=== PATIENT | female | born 1985 | race Caucasian/White ===

== ENCOUNTER → 2017-06-16 | Outpatient (CLI) | payer OTHER ==
--- NOTE | 2017-06-16 15:43 | US ---
EXAMINATION TYPE: US OB anatomy transabd DATE OF EXAM: 06/16/2017 COMPARISON: NONE HISTORY: 31-year-old female Z34.80 Encounter for supervision of normal preg Anatomy scan TECHNIQUE: Transabdominal (TA) FINDINGS: EXAM MEASUREMENTS: GESTATIONAL AGE / DATING Physician Established: (24 weeks/2 days) EDC: 10/04/2017 Dates by LMP: Unknown Dates by First Scan: (24 weeks/2 days) EDC: 10/04/2017 Dates by Current Scan for: (23 weeks/4 days) EDC: 10/09/2017 (5 days more prominent than expected as compared to 04/12/2017). SURVEY IUP: Single PLACENTA: Posterior PREVIA: No previa LISSETT: 11.6 cm Normal CERVICAL LENGTH (transabdominal: norm > 3.0cm): 4.1 cm BIOMETRY PRESENTATION: Vertex BPD: 6.0 cm 24 weeks / 3 days HC: 22.4 cm 24 weeks / 3 days AC: 19.0 cm 23 weeks / 5 days FL: 4.1 cm 23 weeks / 2 days ESTIMATED WEIGHT IN GRAMS: 616.6 grams ESTIMATED WEIGHT IN LBS/OZ: 1 lbs. 6 oz. WEIGHT PERCENTAGE BASED ON ESTABLISHED DATE: 17 % (versus <3% on 04/12/2017) HC/AC: 1.18 Normal FL/AC: 22 Normal HEART RATE: 148 bpm RHYTHM: Normal ANATOMY SEEN (within normal limits): Lateral Vent (< 1 cm) 0.7 cm Cisterna Magna (< 1.1 cm) 0.5 cm Cerebellum (varies with age) 2.6 cm Choroid Plexus (bilateral) Midline Falx Cavus Septi Pellucidi Outflow tracts: LVOT/RVOT Stomach Situs Nose / Lips Diaphragm Kidneys (bilateral) Bladder Three Vessel Cord Arms (bilateral) Legs (bilateral) ANATOMY SUBOPTIMALLY VISUALIZED OR SHOULD BE REASSESSED: Longitudinal Spine (craniocervical junction) - skin line not delineated. Heterogeneous appearance at the craniocervical junction. Transverse Spine Four Chamber Heart- but there is normal except for one image that shows echogenic focus at the tip of the left ventricle. Recommend rescan of this area to exclude an echogenic intracardiac focus. An adj acent rib is suspected. Cord Insert - bulbous appearance to the cord prior to its insertion probably due to the angle during scanning. BATCHMAKER NOTES: Single, viable IUP/ Anatomy appeared wnl IMPRESSION: 1. Single live intrauterine with established gestational age of 24 weeks 2 days by prior da ting scan. Current ultrasound biometry is larger and remains concordant (23 weeks 4 days) which trans lates to 5 days more growth than expected from 04/12/2017. 2. EFW has increased from <3% now to the 17 percentile. 3. Recommend rescan of a few structures including spine (at the craniocervical junction), 4 jesse mber heart to exclude an echogenic intracardiac focus, and the umbilical cord prior to the insertion as above. 4. Otherwise, the remaining anatomy appears normal.
== END | disposition home or self-care (01) ==
LOC: RADUSWWP 13:16
PROVIDERS: ATTEND Obstetrics & Gynecology
DX: Z34.80 Encounter for supervision of other normal pregnancy, unspecified trimester (principal); Z3A.24 24 weeks gestation of pregnancy
CPT/HCPCS: 76811

== ENCOUNTER → 2017-08-04 | Outpatient (CLI) | payer OTHER ==
--- NOTE | 2017-08-04 14:34 | US ---
EXAMINATION TYPE: US OB >= 14 wk fetus DATE OF EXAM: 08/04/2017 COMPARISON: Second trimester ultrasound 06/16/2017 CLINICAL HISTORY: Z34.80 Supervision of normal Preg TECHNIQUE: Transabdominal (TA) GESTATIONAL AGE / DATING Physician Established: (31 weeks/2 days) EDC: 10/04/2017 Dates by LMP: (31 weeks/2 days) EDC: 10/04/2017 Dates by First Scan: (31 weeks/2 days) EDC: 10/04/2017 Dates by Current Scan: (31 weeks/3 days) EDC: 10/03/2017 SURVEY IUP: Single PLACENTA: Posterior PREVIA: No Previa LISSETT: 11.1 cm Normal CERVICAL LENGTH (transabdominal: norm > 3.0cm): 3.4 cm BIOMETRY PRESENTATION: Vertex LIE: Longitudinal BPD: 8.0 cm 32 weeks / 1 days HC: 29.0 cm 32 weeks / 0 days AC: 27.1 cm 31 weeks / 2 days FL: 5.7 cm 30 weeks / 0 days ESTIMATED WEIGHT IN GRAMS: 1667 grams ESTIMATED WEIGHT IN LBS/OZ: 3 lbs. 11 oz. WEIGHT PERCENTAGE BASED ON ESTABLISHED DATES: 27 % HC/AC: 1.07 Normal FL/AC: 21% Normal HEART RATE: 125 bpm RHYTHM: Normal Single, viable IUP, measurements consistent with dates. Rescanned previously suboptimal anatomy. Spin e, cord insert, 4 chamber heart appears wnl. Single live intrauterine gestation is redemonstrated. No thinning of cervix is present. Normal cephal ad presentation to fetus is seen. There is no ultrasound evidence for placenta previa. Amniotic fluid index is calculated within normal limits. biometry measurements are concordant felt within nor mal limits. Repeat limited abdominal survey shows satisfactory visualization of spine on 2 planes, co rd insertion, and four-chamber heart during real-time scanning and on images saved. IMPRESSION: As above.
== END | disposition home or self-care (01) ==
LOC: RADUSWWP 10:46
PROVIDERS: ATTEND Obstetrics & Gynecology
DX: Z34.83 Encounter for supervision of other normal pregnancy, third trimester (principal); Z3A.31 31 weeks gestation of pregnancy
CPT/HCPCS: 76805

== ENCOUNTER → 2017-09-21 | Outpatient (CLI) | payer OTHER ==
--- NOTE | 2017-09-22 07:08 | US ---
EXAMINATION TYPE: US OB >= 14 wk fetus DATE OF EXAM: 09/21/2017 COMPARISON: None CLINICAL HISTORY: Z34.80 ENCOUNTER FOR SUPERVISION OF NORMAL :Growth TECHNIQUE: OBTA GESTATIONAL AGE / DATING Physician Established: (38 weeks/1 days) EDC: 10/04/2017 Dates by First Scan: (38 weeks/1 days) EDC: 10/04/2017 Dates by Current Scan: (37 weeks/0 days) EDC: 10/12/2017 SURVEY IUP: Single PLACENTA: Fundal PREVIA: No Previa LISSETT: 17.4 cm Normal CERVICAL LENGTH (transabdominal: norm > 3.0cm): unable to visualize due to shadowing from head and no n distended bladder cm BIOMETRY PRESENTATION: Vertex LIE: Longitudinal BPD: 9.5 cm 38 weeks / 5 days HC: 32.9 cm 37 weeks / 3 days AC: 34.5 cm 38 weeks / 3 days FL: 7.1 cm 36 weeks / 2 days ESTIMATED WEIGHT IN GRAMS: 3329 grams ESTIMATED WEIGHT IN LBS/OZ: 7 lbs. 5 oz. WEIGHT PERCENTAGE BASED ON ESTABLISHED DATES: 56% HC/AC: 1.0cm Normal FL/AC: 20.6cm Normal HEART RATE: 178 bpm RHYTHM: Normal IMPRESSION: Single live intrauterine with a weight percentage based on established dates of 56% and a s onographic age of 37 weeks and 0 days with estimated date of delivery of 10/12/2017, overall concordan t with menstrual age given the third trimester. Cervical length is unable to be visualized.
== END | disposition home or self-care (01) ==
LOC: RADUSWWP 16:07
PROVIDERS: ATTEND Obstetrics & Gynecology
DX: Z34.83 Encounter for supervision of other normal pregnancy, third trimester (principal)
CPT/HCPCS: 76805